=== PATIENT | male | born 1965 | race African-American/Black ===

== ENCOUNTER 2019-11-03 11:35 | Inpatient (IN) | payer SELFPAY ==
[~2019-11-03] VITALS: Ht 185.4 cm; Wt 104.3 kg
[2019-11-03 12:00] VITALS: BP 143/86
[2019-11-03] MEDS ORDERED: Morphine Sulfate 4mg/ml Inj (IV USE ONLY) IVP ONE (12:00)
[2019-11-03] MEDS ORDERED: Ketorolac 30mg Inj IV ONE (12:00)
--- NOTE | 2019-11-03 12:03 | NUR ---
ED Nurse Note: [facility] to RLE pain x 4 days, worsened with movement and standing, walking. Swelling over the right calf area with redness and warmth noted. Reports no CP, SOB or dyspnea at this time. Reports no injury. Reports no hx and not on any medications at this time. Bed in lowest position. Supported RLE with pillow.
[2019-11-03 12:13] LABS: BASOPHILS % (AUTO) 0.9 % (0.0-2.0); EOSINOPHILS % (AUTO) 2.3 % (0.0-3.0); HEMATOCRIT 46.6 % (42.0-52.0); HEMOGLOBIN 15.2 G/DL (14.2-18.0); LYMPHOCYTES % (AUTO) 15.6 % (20.0-45.0); MEAN CORPUSCULAR VOLUME 95 FL (80-99); NEUTROPHILS % (AUTO) 71.2 % (45.0-75.0); PLATELET COUNT 132 K/UL (150-450); RED BLOOD COUNT 4.92 M/UL (4.70-6.10); WHITE BLOOD COUNT 9.4 K/UL (4.8-10.8)
--- NOTE | 2019-11-03 12:14 | NUR ---
ED Nurse Note: Report given to NGHIA Villanueva. U/S tech at bedside.
[2019-11-03 12:22] LABS: ANION GAP 11 mmol/L (5-15); BLOOD UREA NITROGEN 11 mg/dL (7-18); CALCIUM 8.8 MG/DL (8.5-10.1); CARBON DIOXIDE 27 MMOL/L (21-32); CHLORIDE 101 MMOL/L (98-107); POTASSIUM 3.5 MMOL/L (3.5-5.1); SODIUM 139 MMOL/L (136-145)
[2019-11-03 12:26] LABS: ALANINE AMINOTRANSFERASE 36 U/L (12-78); ALBUMIN 3.8 G/DL (3.4-5.0); ALBUMIN/GLOBULIN RATIO 0.9 (1.0-2.7); ALKALINE PHOSPHATASE 82 U/L (46-116); ASPARTATE AMINO TRANSFERASE 31 U/L (15-37); BILIRUBIN,TOTAL 0.9 MG/DL (0.2-1.0)
--- NOTE | 2019-11-03 13:23 | Diagnostic Imaging Report ---
Indication: Right leg pain and swelling Technique: Grayscale and duplex images of the right lower extremity veins grayscale and duplex images of the right lower extremity veins Comparison: none Findings: Grayscale and duplex images demonstrate thrombus within the right femoral vein and downstream popliteal vein. This results in absence of flow and noncompressibility. The calf veins are patent. The common femoral vein is patent Impression: Positive for right femoral and downstream popliteal vein deep venous thrombosis Dr. Lechuga already aware
[2019-11-03] MEDS ORDERED: Enoxaparin 100mg Inj SUBQ ONE (14:00)
--- NOTE | 2019-11-03 14:03 | Emergency Room Report ---
History of Present Illness General Chief Complaint: Pain Source: Patient, EMS Present Illness HPI 53-year-old male presents with right leg pain swelling. Brought in by EMS from home. Pain started yesterday. Notable right leg swelling per EMS. Pain is throbbing, 10 out of 10, nonradiating. Denies fevers or chills. Denies chest pain or shortness of breath. No other aggravating relieving factors. Denies any other associated symptoms Allergies: Coded Allergies: No Known Allergies (Unverified , 11/03/19) COVID-19 Screening Contact w/high risk pt: No Recent Travel to affected area: No Experienced COVID-19 symptoms?: No COVID-19 Testing performed COORDINATE MEASURING MACHINE TECHNICIAN: No Patient History Past Medical History: none Past Surgical History: none Pertinent Family History: none Social History: Denies: smoking, alcohol use, drug use Immunizations: UTD Reviewed Nursing Documentation: PMH: Agreed; PSxH: Agreed Nursing Documentation-PMH Past Medical History: No Stated History Review of Systems All Other Systems: negative except mentioned in HPI Physical Exam Vital Signs Date Time Temp Pulse Resp B/P (MAP) Pulse Ox O2 Delivery O2 Flow Rate FiO2 11/03/19 11:31 98.4 110 18 188/98 (128) 98 Room Air Sp02 EP Interpretation: reviewed, normal General Appearance: no apparent distress, alert, GCS 15, non-toxic Head: normocephalic, atraumatic Eyes: bilateral eye normal inspection, bilateral eye PERRL ENT: hearing grossly normal, normal pharynx, no angioedema, normal voice Neck: full range of motion, supple/symm/no masses Respiratory: chest non-tender, lungs clear, normal breath sounds, speaking full sentences Cardiovascular #1: regular rate, rhythm, no edema Cardiovascular #2: 2+ carotid (R), 2+ carotid (L), 2+ radial (R), 2+ radial (L) , 2+ dorsalis pedis (R), 2+ dorsalis pedis (L) Gastrointestinal: normal bowel sounds, non tender, soft, non-distended, no guarding, no rebound Rectal: deferred Genitourinary: normal inspection, no CVA tenderness Musculoskeletal: back normal, normal range of motion, calf tenderness - Right, gait/station normal Neurologic: alert, motor strength/tone normal, oriented x3, sensory intact, responsive, speech normal Psychiatric: judgement/insight normal, memory normal, mood/affect normal, no suicidal/homicidal ideation Reflexes: 3+ bicep (R), 3+ bicep (L), 3+ tricep (R), 3+ tricep (L), 3+ knee (R) , 3+ knee (L) Lymphatic: no adenopathy Medical Decision Making Diagnostic Impression: Primary Impression: DVT (deep venous thrombosis) Qualified Codes: I82.409 - Acute embolism and thrombosis of unspecified deep veins of unspecified lower extremity ER Course Hospital Course 53-year-old male presents ED with R leg pain and swelling. Differential diagnoses include: DVT, cellulitis, contusion, abscess Clinical course Patient placed on stretcher after initial history and physical I ordered labs, pain medication and DVT ultrasound. Labs reviewed- electrolytes okay, hemoglobin/hematocrit stable Ultrasound shows acute RLE DVT No chest pain or shortness of breath. Vitals stable. Patient given Lovenox in ED. Patient admitted to Dr. Medrano service I. I feel this is a highly complex case requiring extensive working including EKG/Rhythm strip, Xray/CT/US, Blood/urine lab work, repeat exams while in ED, and administration of strong opiates/narcotics for pain control, admission to hospital or close patient follow up. Diagnosis - DVT admitted to floor in serious condition Labs Test 11/03/19 12:00 White Blood Count 9.4 K/UL (4.8-10.8) Red Blood Count 4.92 M/UL (4.70-6.10) Hemoglobin 15.2 G/DL (14.2-18.0) Hematocrit 46.6 % (42.0-52.0) Mean Corpuscular Volume 95 FL (80-99) Mean Corpuscular Hemoglobin 30.9 PG (27.0-31.0) Mean Corpuscular Hemoglobin Concent 32.7 G/DL (32.0-36.0) Red Cell Distribution Width 12.0 % (11.6-14.8) Platelet Count 132 K/UL (150-450) Mean Platelet Volume 9.1 FL (6.5-10.1) Neutrophils (%) (Auto) 71.2 % (45.0-75.0) Lymphocytes (%) (Auto) 15.6 % (20.0-45.0) Monocytes (%) (Auto) 10.0 % (1.0-10.0) Eosinophils (%) (Auto) 2.3 % (0.0-3.0) Basophils (%) (Auto) 0.9 % (0.0-2.0) Prothrombin Time 10.9 SEC (9.30-11.50) Prothromb Time International Ratio 1.0 (0.9-1.1) Activated Partial Thromboplast Time 25 SEC (23-33) Sodium Level 139 MMOL/L (136-145) Potassium Level 3.5 MMOL/L (3.5-5.1) Chloride Level 101 MMOL/L (98-107) Carbon Dioxide Level 27 MMOL/L (21-32) Anion Gap 11 mmol/L (5-15) Blood Urea Nitrogen 11 mg/dL (7-18) Creatinine 1.0 MG/DL (0.55-1.30) Estimat Glomerular Filtration Rate > 60 mL/min (>60) Glucose Level 120 MG/DL (74-106) Calcium Level 8.8 MG/DL (8.5-10.1) Total Bilirubin 0.9 MG/DL (0.2-1.0) Aspartate Amino Transf (AST/SGOT) 31 U/L (15-37) Alanine Aminotransferase (ALT/SGPT) 36 U/L (12-78) Alkaline Phosphatase 82 U/L (46-116) Total Protein 7.8 G/DL (6.4-8.2) Albumin 3.8 G/DL (3.4-5.0) Globulin 4.0 g/dL Albumin/Globulin Ratio 0.9 (1.0-2.7) CT/MRI/US Diagnostic Results CT/MRI/US Diagnostic Results : Imaging Test Ordered: venous duplex Impression Procedure: Venous Duplex Lower Ext Uni Indication: Right leg pain and swelling Technique: Grayscale and duplex images of the right lower extremity veins grayscale and duplex images of the right lower extremity veins Comparison: none Findings: Grayscale and duplex images demonstrate thrombus within the right femoral vein and downstream popliteal vein. This results in absence of flow and noncompressibility. The calf veins are patent. The common femoral vein is patent Impression: Positive for right femoral and downstream popliteal vein deep venous thrombosis Dr. Lechuga already aware Last Vital Signs Date Time Temp Pulse Resp B/P (MAP) Pulse Ox O2 Delivery O2 Flow Rate FiO2 11/03/19 12:28 98.2 11/03/19 12:00 92 16 143/86 99 Room Air Status: improved Disposition: ADMITTED INPATIENT Condition: Serious Scripts Apixaban (ELIQUIS) 5 Mg Tablet 5 MG PO BID for 30 Days, #60 TAB Prov: Palmer Medrano MD 11/04/19 Referrals: NOT CHOSEN IPA/,REFERRING (PCP) Kennedy Lechuga MD Nov 03, 2019 14:03
--- NOTE | 2019-11-03 14:57 | NUR ---
ED Nurse Note:called [address] with report given to Nick AGRAWAL
--- NOTE | 2019-11-03 15:20 | NUR ---
NURSE NOTES: Patient in bed awake and able to verbalize needs. Stable. Denies pain or SOB. Patient is on bed rest. Patient oriented to room, call light, and unit. Patient instructed to use call light for assistance, verbalized understanding. Patient is in bed in locked and lowest position with call light within reach. All safety measures provided. Will continue to monitor.
[2019-11-03] MEDS ORDERED: Milk of Magnesia 30ml Ud ORAL PRN (17:00)
[2019-11-03] MEDS ORDERED: Zolpidem 5mg tab ORAL PRN (17:00)
--- NOTE | 2019-11-03 17:14 | NUR ---
NURSE NOTES: Left vm for caser up regarding Dr. Medrano's orders. Will endorse to next shift.
[2019-11-03] MEDS: HYDROcodone/Acetamin 5/325 tab ORAL PRN ×2 (18:20→22:07)
--- NOTE | 2019-11-03 19:35 | NUR ---
NURSE NOTES: Received report from NGHIA Nolan
--- NOTE | 2019-11-03 19:37 | NUR ---
HAND-OFF: Report given to Melissa AGRAWAL. Endorsed plan of care. Endorsed message for case management.
--- NOTE | 2019-11-03 19:40 | NUR ---
NURSE NOTES: Pt is laying in bed, A/Ox4. No acute distress noted. Denies pain. Patient is on bed rest. L Wrist IV patient and intact heplock. Bed is in locked and lowest position. Call light within reach. Will continue to monitor.
[2019-11-03 20:00] VITALS: BP 135/92
[2019-11-03] MEDS: Docusate 100mg cap ORAL SCH (21:04)
[2019-11-03] MEDS ORDERED: Xarelto 10mg tab ORAL SCH (22:00)
[2019-11-04] VITALS: BP 137/90
--- NOTE | 2019-11-04 01:15 | History and Physical Report ---
DATE OF ADMISSION: 11/03/2019 CHIEF COMPLAINT/REASON FOR HOSPITALIZATION: The patient is admitted for right-sided DVT. PERTINENT HISTORY: The patient has 4 days of pain and swelling of the right leg and a DVT study showed thrombus with the right femoral vein and downstream popliteal vein. Calf veins are present. Common femoral vein is patent. In view of the above, he is admitted. The patient has generally been in good health. SURGERIES: None. HOSPITALIZATIONS: None. ALLERGIES: None known. HABITS: He smokes 1 cigar a day, prior more. Alcohol, about 1 beer and 1 shot of alcohol daily. SOCIAL HISTORY: He is from his . SYSTEM REVIEW: All negative except for the current complaints. PHYSICAL EXAMINATION: VITAL SIGNS: Temperature 98.2, heart rate 92, respirations 16, and blood pressure 143/86. Blood pressure earlier 188/98. GENERAL: He is alert, muscular man, in no acute distress. HEAD, EYES, EARS, NOSE, AND THROAT: Sclerae are nonicteric. Ocular motions intact in all directions. Oral mucosa moist. NECK: No adenopathy or thyroid enlargement. LUNGS: Clear. HEART: Rhythm is regular. No murmur. ABDOMEN: Soft without organomegaly or masses. EXTREMITIES: The right thigh and leg are diffusely swollen and tender. I do not feel a clear cord. NEUROLOGIC: He is alert and oriented. Cranial nerves are intact. IMPRESSION: 1. Right-sided DVT. 2. Prior negative medical history. 3. Habits, as noted on the HPI. 4. Random glucose 120. No history of diabetes. PLAN: 1. We will put him on Eliquis or Xarelto. 2. He will need social service or somebody to assist him with outpatient transfer in the near future. Palmer Medrano M.D. DR: ALFRED JOB#: [id number] CC:
[2019-11-04 03:00] VITALS: BP 140/88
[2019-11-04 04:00] VITALS: BP 137/80
[2019-11-04] MEDS: HYDROcodone/Acetamin 5/325 tab ORAL PRN ×3 (05:07→13:55)
[2019-11-04 06:25] LABS: BASOPHILS % (AUTO) 1.1 % (0.0-2.0); EOSINOPHILS % (AUTO) 1.5 % (0.0-3.0); HEMATOCRIT 41.1 % (42.0-52.0); HEMOGLOBIN 13.7 G/DL (14.2-18.0); LYMPHOCYTES % (AUTO) 10.3 % (20.0-45.0); MEAN CORPUSCULAR VOLUME 95 FL (80-99); MONOCYTES % (AUTO) 10.2 % (1.0-10.0); NEUTROPHILS % (AUTO) 76.9 % (45.0-75.0); PLATELET COUNT 114 K/UL (150-450); RED BLOOD COUNT 4.33 M/UL (4.70-6.10); RED CELL DISTRIBUTION WIDTH 11.9 % (11.6-14.8); WHITE BLOOD COUNT 10.8 K/UL (4.8-10.8)
--- NOTE | 2019-11-04 07:11 | NUR ---
HAND-OFF: Report given to NGHIA Nolan.Pt stable
[2019-11-04 07:12] LABS: ALANINE AMINOTRANSFERASE 29 U/L (12-78); ALBUMIN 3.1 G/DL (3.4-5.0); ALBUMIN/GLOBULIN RATIO 0.8 (1.0-2.7); ALKALINE PHOSPHATASE 70 U/L (46-116); ANION GAP 8 mmol/L (5-15); ASPARTATE AMINO TRANSFERASE 22 U/L (15-37); BILIRUBIN,TOTAL 0.5 MG/DL (0.2-1.0); BLOOD UREA NITROGEN 13 mg/dL (7-18); CALCIUM 8.2 MG/DL (8.5-10.1); CARBON DIOXIDE 29 MMOL/L (21-32); CHLORIDE 100 MMOL/L (98-107); CREATININE 1.1 MG/DL (0.55-1.30); POTASSIUM 3.5 MMOL/L (3.5-5.1); SODIUM 137 MMOL/L (136-145)
--- NOTE | 2019-11-04 07:30 | NUR ---
NURSE NOTES: Patient is in bed awake and able to verbalize needs. Stable. Denies pain or SOB. Patient instructed to use call light for assistance, verbalized understanding. Plan of care discussed with patient. All safety measures provided. Patient is in bed in locked and lowest position with call light within reach. Will continue to monitor.
[2019-11-04 08:00] VITALS: BP 129/87
[2019-11-04] MEDS: Docusate 100mg cap ORAL SCH (08:19)
[2019-11-04] MEDS ORDERED: Xarelto 15mg tab ORAL SCH (09:00)
[2019-11-04 12:00] VITALS: BP 152/87
--- NOTE | 2019-11-04 12:18 | General Progress Note ---
Assessment/Plan Problem List: (1) Abnormal glucose ICD Codes: R73.09 - Other abnormal glucose SNOMED: 201522518 (2) DVT (deep venous thrombosis) ICD Codes: I82.409 - Acute embolism and thrombosis of unspecified deep veins of unspecified lower extremity SNOMED: 466327181 Assessment/Plan: xarelto, check Hba1c Subjective Constitutional: Reports: no symptoms HEENT: Reports: no symptoms Cardiovascular: Reports: no symptoms Respiratory: Reports: no symptoms Gastrointestinal/Abdominal: Reports: no symptoms Neurologic/Psychiatric: Reports: no symptoms Endocrine: Reports: no symptoms Allergies: Coded Allergies: No Known Allergies (Unverified , 11/03/19) Subjective r leg pain Objective Last 24 Hour Vital Signs Date Time Temp Pulse Resp B/P (MAP) Pulse Ox O2 Delivery O2 Flow Rate FiO2 11/04/19 08:55 Room Air 11/04/19 08:00 99.1 89 18 129/87 (101) 99 11/04/19 04:03 99.0 11/04/19 04:00 99.0 80 18 137/80 (99) 96 11/04/19 03:00 100.6 88 18 140/88 (105) 95 11/04/19 00:00 99.5 95 18 137/90 (106) 94 11/03/19 21:00 Room Air 11/03/19 20:00 99.4 96 18 135/92 (106) 96 11/03/19 16:21 Room Air 11/03/19 14:54 98.2 92 16 143/86 99 Room Air 11/03/19 12:28 98.2 11/03/19 12:28 98.2 Intake and Output 11/03/19 11/04/19 19:00 07:00 Intake Total 120 ml 600 ml Output Total 980 ml Balance 120 ml -380 ml Intake Oral 120 ml 600 ml Output Urine Total 980 ml # Voids 5 Laboratory Tests 11/04/19 04:50: White Blood Count 10.8, Red Blood Count 4.33L, Hemoglobin 13.7L, Hematocrit 41.1L, Mean Corpuscular Volume 95, Mean Corpuscular Hemoglobin 31.6H, Mean Corpuscular Hemoglobin Concent 33.3, Red Cell Distribution Width 11.9, Platelet Count 114L, Mean Platelet Volume 9.6, Neutrophils (%) (Auto) 76.9H, Lymphocytes (%) (Auto) 10.3L, Monocytes (%) (Auto) 10.2H, Eosinophils (%) (Auto) 1.5, Basophils (%) (Auto) 1.1, Sodium Level 137, Potassium Level 3.5, Chloride Level 100, Carbon Dioxide Level 29, Anion Gap 8, Blood Urea Nitrogen 13, Creatinine 1.1, Estimat Glomerular Filtration Rate > 60, Glucose Level 193H, Hemoglobin A1c 6.9H, Calcium Level 8.2L, Total Bilirubin 0.5, Aspartate Amino Transf (AST/ SGOT) 22, Alanine Aminotransferase (ALT/SGPT) 29, Alkaline Phosphatase 70, Total Protein 6.9, Albumin 3.1L, Globulin 3.8, Albumin/Globulin Ratio 0.8L, Thyroid Stimulating Hormone (TSH) 0.380 Height (Feet): 6 Height (Inches): 1.00 Weight (Pounds): 230 General Appearance: WD/WN, no apparent distress EENT: normal ENT inspection Neck: normal alignment Cardiovascular: regular rhythm Respiratory/Chest: lungs clear Abdomen: soft Extremities: other - rle swollen, tender Neurologic: fitness floor attendant II-XII grossly normal Palmer Medrano MD Nov 04, 2019 12:18
--- NOTE | 2019-11-04 12:33 | NUR ---
Discharge planning: CM spoke to MD at length regarding safe discharge Patient lives in hotel Ambulates well SW to interview patient SW will discuss setting appointment with [facility] MD Dr Medrano confirmed discharge today
[2019-11-04] MEDS ORDERED: ELIQUIS5 MG PO (12:40)
--- NOTE | 2019-11-04 12:53 | NUR ---
OVEN HEATER NOTE SW met w/ pt and assessed pt's need. Pt presents as A&O 4x. PT is identified as homeless as he has been residing in a hotel. Pt was previously staying at [facility] [address] [place] [address]. Pt has one 9/yo daughter staying w/ her mother who is currently battling w/ breast cancer. Pt reports he will not be able to go to the baby mother's house. Pt has been working as a construction helper and paying his stay at the hotel. Pt reports he has not worked today and does not know where he will be staying tonight. Pt reports he will call his cousin and arrange transportation. Pt does not receive any welfare/benefit. SW called [facility] [phone] #[phone] and was informed there is no bed available. SW provided the list of shelters and the community resource packet including the list of [facility]. SW recommended pt to call the [facility] as many of them are currently closed due to pandemic. Pt verbalized understanding. SW also encouraged pt to utilize [place] [id number]. Pt reports in need of DME. MYRNA informed of such need to assigned CM and RN. PT to be discharged to his preferred location. Addendum: 11/04/19 at 1308 by MARTHA NORRIS PT denies substance abuse/mental health issue. Pt denies SI/HI. Emergency contacts: Kade Wiley (cousin) [phone] and Ghanshyam Wiley(cousin) [phone]
--- NOTE | 2019-11-04 13:00 | NUR ---
NURSE NOTES: Reported patient's temperature to Dr. Medrano, no new orders at this time. Addendum: 11/04/19 at 1420 by YENNY PETERSON RN NURSE NOTES: Dr. Medrano said patient can still discharge home regardless of fever.
--- NOTE | 2019-11-04 13:30 | NUR ---
PT Evaluation Note PT evaluation completed, pls see interventions for details. Patient was issued a FWW by nursing. PT adjusted FWW to height and instructed on proper use of FWW with gait training. Patient able to demonstrate safety use of FWW for gait. Patient being discharge from the hospital. Discharge PT services at this time.
--- NOTE | 2019-11-04 13:30 | NUR ---
NURSE NOTES: Patient stated that he spoke to uncle on phone. Uncle will arrange transportation and placement. Awaiting arrival.
--- NOTE | 2019-11-04 15:06 | NUR ---
NURSE NOTES: Patient was given thorough medication teaching regarding eliquis by RN, verbalized understanding. Patient aware of risks and benefits. Patient was also given through discharge instructions by Dr. Medrano prior to discharging. Teaching reinforced by RN. Written instructions given to patient. All resources given to patient. IV removed. Skin is c/d/i. Patient has all belongings. Awaiting uncle to pick him up from hospital.
--- NOTE | 2019-11-04 15:27 | NUR ---
NURSE NOTES: Patient discharged home as ordered. Patient assisted into car by staff without incident. Patient has all belongings. Medication given to patient. Patient verbalized that he will take medication as directed.
[2019-11-04] MEDS ORDERED: Eliquis 5mg tablet ORAL SCH (18:00)
--- NOTE | 2019-11-05 04:15 | Discharge Summary ---
DATE OF ADMISSION: 11/03/2019 DATE OF DISCHARGE: 11/04/2019 PERTINENT HISTORY: This is a 53-year-old man DVT of right leg. PERTINENT PHYSICAL FINDINGS: LUNGS: Clear. HEART: Regular rhythm. EXTREMITIES: Showed swelling and pain from the right thigh down to the right foot. COURSE IN THE HOSPITAL: The patient was put on oral anticoagulants changed to Eliquis as discussed with the pharmacy. He had no chest pain, shortness of breath, or other complications. Because of his lack of insurance, the case management was involved and arranged him to get some samples of Eliquis from pharmacy to allow for a safe discharge and gave him instructions how to follow up in the county facility for further medical care and evaluation of the above. He also was noted to have random glucose of 120 and 193, and he was informed of glucose intolerance. He was told to follow up on this matter as an outpatient and to avoid concentrated sweets. FINAL DIAGNOSES: 1. Acute thrombophlebitis, right leg. 2. Glucose intolerance. DISCHARGE DISPOSITION: He is discharged home on Eliquis 10 mg b.i.d. for 7 days and 5 mg b.i.d. Follow up in a county facility or physician of his choice. Palmer Medrano M.D. DR: ANIYAH JOB#: [id number] CC:
== END 2019-11-04 15:32 | disposition home or self-care (01) | DRG 295 ==
LOC: EDBD 11:35 → EMR 11:55 → 3E 13:35 → EDBEDREQ 14:38
DX: I80.11 Phlebitis and thrombophlebitis of right femoral vein (principal); I80.221 Phlebitis and thrombophlebitis of right popliteal vein; E74.39 Other disorders of intestinal carbohydrate absorption
CPT/HCPCS: 36415; 80053; 83036; 84443; 85025; 85610; 85730; 86850; 86900; 86901; 93971; 96372; 96374; 96375; 99285